=== PATIENT | male | born 1950 | race Two or more races ===

== ENCOUNTER 2016-08-09 13:39 | Inpatient (IN) | payer BC ==
[~2016-08-09] VITALS: Ht 180.3 cm; Wt 135.3 kg
--- NOTE | 2016-08-09 15:20 | RAD ---
Indication: Short of air beginning last night. Cough. Technique: Two-view chest radiograph was obtained. Comparison is from November 10, 2015. Findings: There is mild elevation of the right hemidiaphragm. The lungs are clear. There is no pleural effusion. The heart is not enlarged and there is no heart failure. There are degenerative changes in the spine. Impression: No active pulmonary disease.
[2016-08-09 15:24] LABS: BASO # 0.1 x10^3/uL (0.0-0.2); BASO % 1 % (0-3); EOS % 1 % (0-3); HEMATOCRIT 48.3 % (39.0-53.0); HEMOGLOBIN 15.6 g/dL (13.0-17.5); LYMPH # 1.5 x10^3/uL (1.0-4.8); LYMPH % 11 % (24-48); MEAN CORPUSCULAR HEMOGLOBIN 29 pg (25-35); MEAN CORPUSCULAR HGB CONC 32 g/dL (31-37); MEAN CORPUSCULAR VOLUME 90 fL (79-100); MONO % 11 % (0-9); NEUT % 76 % (31-73); PLATELET COUNT 140 x10^3/uL (140-400); RED BLOOD COUNT 5.35 x10^6/uL (4.30-5.70); RED CELL DISTRIBUTION WIDTH 13.7 % (11.5-14.5)
--- NOTE | 2016-08-09 15:33 | EKG ---
[facility] [address] [place] [address] Test Date: 2016-08-09 Test Time: 15:17:07 Pat Name: CHERYLE AGUILAR Department: Room: Gender: Speeder Hand: : 1950 Requested By: MARY JERNIGAN Order Number: [id number] Reading MD: Shannan Byrne Measurements Intervals [place] Rate: 101 P: 41 [place]: 148 QRS: -31 QRSD: 100 T: 1 QT: 342 QTc: 450 Interpretive Statements SINUS TACHYCARDIA ABNORMAL LEFT AXIS DEVIATION OLD ANTEROSEPTAL [place] T ABNORMALITY IN ANTERIOR LEADS RI6.01 Unconfirmed report No previous ECG available for comparison Electronically Signed On 08-11-2016 10:58:01 CDT by Shannan Byrne
[2016-08-09 15:34] LABS: CALCIUM 9.5 mg/dL (8.5-10.1); CREATININE 1.2 mg/dL (0.7-1.3); POTASSIUM 4.6 mmol/L (3.5-5.1)
[2016-08-09] MEDS ORDERED: IOHEXOL 300 MG/ML 75 ML VIAL IV ONE (15:45)
[2016-08-09] MEDS ORDERED: SPIR50TA2 PO (15:58)
[2016-08-09 16:22] LABS: INR 1.1 (0.8-1.1); PROTHROMBIN TIME PATIENT 13.8 SEC (11.7-14.0)
[2016-08-09] MEDS ORDERED: CONTRAST GIVEN MC PRN (16:30)
--- NOTE | 2016-08-09 16:45 | RAD ---
CTA of the chest without contrast, 08/09/2016: History: Shortness of breath, stopped anticoagulation Multidetector CT imaging was performed following an IV bolus injection of iodinated contrast material. Multiplanar reconstructions were produced including coronal MIP images. No previous studies are available at this time for comparison purposes. There is a filling defect in the lateral aspect of the right main pulmonary artery extending into lobar and segmental branches in the right upper and lower lobes, and to a lesser degree in the right middle lobe. There are also segmental and subsegmental pulmonary artery filling defects in the left upper and lower lobes. There is mild calcific plaquing of the thoracic aorta. The ascending aorta measures 4.6 cm in width. The thoracic arch measures 3.8 cm. The descending thoracic aorta measures approximately 3 cm. Mild scattered coronary artery calcifications are present. Several small scattered linear opacities are compatible with scarring and/or atelectasis. No significant pulmonary consolidation is seen. There is no evidence of pleural fluid. IMPRESSION: 1. Moderate bilateral pulmonary emboli. 2. Calcific plaquing of the aorta with mild dilatation of the ascending aorta. 3. Coronary artery calcifications. PQRS Compliance Statement: One or more of the following individualized dose reduction techniques were utilized for this examination: 1. Automated exposure control 2. Adjustment of the mA and/or kV according to patient size 3. Use of iterative reconstruction technique
--- NOTE | 2016-08-09 16:51 | ED.ADGEN ---
Past Medical History Past Medical History: Other Additional Past Medical Histor: DVT Past Surgical History: Other Additional Past Surgical Histo: IVC filter Alcohol Use: None Drug Use: None Adult General Chief Complaint Chief Complaint: SHORTNESS OF BREATH HPI HPI Patient is a 66 year old man, history of DVT and bilateral lower extremities, who was previously on anticoagulation, but was taken off after complications several years ago, who presents to the emergency department with complaint of dyspnea and exertion that began yesterday. Patient states that he was attempting amulet, was feeling extremely short of breath. States that the shortness of breath did improve when he sat down to rest. Denies any chest pain , states he did express of epigastric pain that began yesterday afternoon. He tried taking antacids without relief. Patient denies any injuries, any weakness numbness or tingling, states that he felt slightly lightheaded, when the shortness of breath occurred, denies any symptoms at rest at this time. Denies any recent travel or surgery, any increased swelling in his life, states that "they will swell and then get better it just comes and goes". He states that he believes that he had a stress test performed several years ago at [facility], but is a limited historian. He states that he does not know the cause for his DVTs, but states that he was evaluated by animal bounty hunter and was told that he did not necessarily need to be anticoagulated anymore "unless I wanted to". He is currently taking "natural pills" along with the by systolic and spironolactone prescribed by his primary care provider Dr. Segura. Review of Systems Review of Systems Constitutional: Denies fever or chills. [] Eyes: Denies change in visual acuity. [] HENT: Denies nasal congestion or sore throat. [] Respiratory: Denies cough, complaining of shortness of breath and epigastric abdominal pain. Cardiovascular: Denies chest pain or edema. [] GI: Denies abdominal pain, nausea, vomiting, bloody stools or diarrhea. [] : Denies dysuria. [] Musculoskeletal: Denies back pain or joint pain. [] Integument: Denies rash. [] Neurologic: Denies headache, focal weakness or sensory changes. [] Endocrine: Denies polyuria or polydipsia. [] Lymphatic: Denies swollen glands. [] Psychiatric: Denies depression or anxiety. [] Current Medications Current Medications Current Medications Medications (Trade) Dose Ordered Sig/Melinda Start Time Stop Time Status Last Admin Dose Admin Info (Do NOT chart on this entry -- for MONITORING) 1 each PRN DAILY PRN 08/09/16 16:30 08/11/16 16:29 Iohexol (Omnipaque 300 Mg/ml) 75 ml 1X ONCE 08/09/16 15:45 08/09/16 16:25 DC Allergies Allergies Allergies Coded Allergies Type Severity Reaction Last Updated Verified No Known Drug Allergies 08/09/16 No Physical Exam Physical Exam Constitutional: Well developed, well nourished, no acute distress, non-toxic appearance. [] HENT: Normocephalic, atraumatic, bilateral external ears normal, oropharynx moist, no oral exudates, nose normal. [] Eyes: PERRLA, EOMI, conjunctiva normal, no discharge. [] Neck: Normal range of motion, no tenderness, supple, no stridor. [] Cardiovascular:Heart rate regular rhythm, no murmur, S1, S2, mildly tachycardic. No rubs or gallops. [] Lungs & Thorax: Diminished breath sounds throughout, no rhonchi, rales or wheezing identified. Good air movement. No chest wall crepitus or point tenderness. [] Abdomen: Bowel sounds normal, soft, no tenderness, no rebound, rigidity, no guarding, no masses, no pulsatile masses. [] Skin: Warm, dry, no erythema, no rash. [] Back: No tenderness, no CVA tenderness. [] Extremities: No tenderness, no cyanosis, no clubbing, ROM intact, patient with chronic skin changes, venous stasis, negative Homans sign. Neurologic: Alert and oriented X 3, normal motor function, normal sensory function, no focal deficits noted. [] Psychologic: Affect normal, judgement normal, mood normal. [] Current Patient Data Vital Signs Vital Signs Date Time Temp Pulse Resp B/P Pulse Ox O2 Delivery O2 Flow Rate FiO2 08/09/16 17:33 100 19 143/80 98 Room Air 08/09/16 14:12 97.5 97.5 Lab Values Laboratory Tests Test 08/09/16 15:10 White Blood Count 13.0x10^3/uL (4.0-11.0) H Red Blood Count 5.35x10^6/uL (4.30-5.70) Hemoglobin 15.6g/dL (13.0-17.5) Hematocrit 48.3% (39.0-53.0) Mean Corpuscular Volume 90fL (79-100) Mean Corpuscular Hemoglobin 29pg (25-35) Mean Corpuscular Hemoglobin Concent 32g/dL (31-37) Red Cell Distribution Width 13.7% (11.5-14.5) Platelet Count 140x10^3/uL (140-400) Neutrophils (%) (Auto) 76% (31-73) H Lymphocytes (%) (Auto) 11% (24-48) L Monocytes (%) (Auto) 11% (0-9) H Eosinophils (%) (Auto) 1% (0-3) Basophils (%) (Auto) 1% (0-3) Neutrophils # (Auto) 9.9x10^3uL (1.8-7.7) H Lymphocytes # (Auto) 1.5x10^3/uL (1.0-4.8) Monocytes # (Auto) 1.4x10^3/uL (0.0-1.1) H Eosinophils # (Auto) 0.1x10^3/uL (0.0-0.7) Basophils # (Auto) 0.1x10^3/uL (0.0-0.2) Prothrombin Time 13.8SEC (11.7-14.0) Prothrombin Time INR 1.1 (0.8-1.1) PTT 35SEC (24-38) Sodium Level 138mmol/L (136-145) Potassium Level 4.6mmol/L (3.5-5.1) Chloride Level 102mmol/L (98-107) Carbon Dioxide Level 29mmol/L (21-32) Anion Gap 7 (6-14) Blood Urea Nitrogen 19mg/dL (8-26) Creatinine 1.2mg/dL (0.7-1.3) Estimated GFR (Cockcroft-Gault) 61.0 Glucose Level 106mg/dL (70-99) H Calcium Level 9.5mg/dL (8.5-10.1) Troponin I Quantitative 0.800ng/mL (0.000-0.055) RH-Rdt-Y-Type Natriuretic Peptide 2639pg/mL (0-124) H Lipase 87U/L (73-393) Laboratory Tests 08/09/16 15:10 Laboratory Tests 08/09/16 15:10 EKG EKG ECG: Sinus tachycardia, heart rate 101 bpm, left axis deviation noted, QTc of 450, OK 148, QRS of 100, no ST elevations or depressions noted, patient with left anterior fascicular block, abnormal ECG, does not meet STEMI criteria. As interpreted by me. [] Radiology/Procedures Radiology/Procedures [] [facility] [id number] [place] [address] IMAGING REPORT Signed PATIENT: CHERYLE AGUILAR ACCOUNT: [id number] : 1950 LOCATION: ER AGE: 66 SEX: M EXAM STATUS: REG ER ORD. PHYSICIAN: MARY JERNIGAN DO REASON: CP/cough PROCEDURE: CHEST PA & LATERAL Indication: Short of air beginning last night. Cough. Technique: Two-view chest radiograph was obtained. Comparison is from November 10, 2015. Findings: There is mild elevation of the right hemidiaphragm. The lungs are clear. There is no pleural effusion. The heart is not enlarged and there is no heart failure. There are degenerative changes in the spine. Impression: No active pulmonary disease. DICTATED and SIGNED BY: JAM OLSON MD DATE: 08/09/16 7146 CC: MARY JERNIGAN DO; IDA SGEURA MD ~ Impressions: [facility] [address] [place] [address] IMAGING REPORT Signed PATIENT: CHERYLE AGUILAR ACCOUNT: [id number] : 1950 LOCATION: ER AGE: 66 SEX: M EXAM STATUS: REG ER ORD. PHYSICIAN: MARY JERNIGAN DO REASON: SOB/hx PE, off anticoagulation PROCEDURE: CTA CHEST CTA of the chest without contrast, 08/09/2016: History: Shortness of breath, stopped anticoagulation Multidetector CT imaging was performed following an IV bolus injection of iodinated contrast material. Multiplanar reconstructions were produced including coronal MIP images. No previous studies are available at this time for comparison purposes. There is a filling defect in the lateral aspect of the right main pulmonary artery extending into lobar and segmental branches in the right upper and lower lobes, and to a lesser degree in the right middle lobe. There are also segmental and subsegmental pulmonary artery filling defects in the left upper and lower lobes. There is mild calcific plaquing of the thoracic aorta. The ascending aorta measures 4.6 cm in width. The thoracic arch measures 3.8 cm. The descending thoracic aorta measures approximately 3 cm. Mild scattered coronary artery calcifications are present. Several small scattered linear opacities are compatible with scarring and/or atelectasis. No significant pulmonary consolidation is seen. There is no evidence of pleural fluid. IMPRESSION: 1. Moderate bilateral pulmonary emboli. 2. Calcific plaquing of the aorta with mild dilatation of the ascending aorta. 3. Coronary artery calcifications. PQRS Compliance Statement: One or more of the following individualized dose reduction techniques were utilized for this examination: 1. Automated exposure control 2. Adjustment of the mA and/or kV according to patient size 3. Use of iterative reconstruction technique DICTATED and SIGNED BY: DEAN URBINA MD DATE: 08/09/16 9652 CC: MARY JERNIGAN DO; IDA SEGURA MD ~ Course & Med Decision Making Course & Med Decision Making Pertinent Labs and Imaging studies reviewed. (See chart for details) Patient is a rather poor historian, states he does have an IVC filter in place, that was placed 3 years ago" was supposed be taking a few months later but then they did an". I am still unclear as to whether this was a provoked DVT 3 years ago, and if he is still supposed to be on anticoagulation based in his report. After discussion, we'll obtain laboratory studies, imaging of the chest for chest x-ray, and CT of the chest to rule out evaluate for PE. Patient's previous DVT study reveals chronic widespread thrombosis. No indication to repeat at this time. Patient noted be mildly hypoxic, oxygen saturation 94% on room air, heart rate in the 90s to low 100s. Denies any shortness of breath or chest tightness at rest. PE study reveals bilateral moderate PE. Findings as above discussed with patient and family at bedside, patient is agreeable for admission to the hospital and initiation on anticoagulation, noted have positive troponin 0.800, as stated is asymptomatic at rest, and I believe the elevated troponin is due to heart strain from the patient's PE. Findings as above discussed with Dr. Capone of pulmonary critical care, he is in agreement with the plan for heparin, recommends admission to the cardiac telemetry floor, and with the assessment of the patient's elevated troponin due to his known PE. We'll follow the patient upon admission to the hospital. Findings as above discussed with Dr. Del Valle of internal medicine, patient accepted to his service as a full admission to the cardiac telemetry floor, consultation with pulmonary critical care and cardiology, heparin. Bridge orders entered as stated. Dragethan Disclaimer Dragon Disclaimer This electronic medical record was generated, in whole or in part, using a voice recognition dictation system. Departure Impression: Primary Impression: Pulmonary embolism Disposition: ADMITTED INPATIENT Admitting Physician: Nicholas Del Valle Condition: IMPROVED MARY JERNIGAN DO Aug 09, 2016 16:51
[2016-08-09] MEDS ORDERED: HEPARIN for IV BOLUS 10,000 UNIT/10 ML VIAL. IV PRN (17:45)
[2016-08-09] MEDS ORDERED: HEPARIN for IV BOLUS 10,000 UNIT/10 ML VIAL. IV ONE (17:45)
[2016-08-09] MEDS: HEPARIN 25,000UTS/500ML PREMIX 500 ML IV PRN (17:52)
[2016-08-09] MEDS ORDERED: ACETAMINOPHEN 325 MG TABLET. PO PRN (18:00)
[2016-08-09] MEDS ORDERED: ONDANSETRON PF 4 MG/2 ML VIAL. IV PRN (18:00)
[2016-08-09 19:52] VITALS: BP 132/83
[2016-08-09 23:22] VITALS: BP 124/73
[2016-08-10 03:06] VITALS: BP 131/72
[2016-08-10 03:35] LABS: BASO % 0 % (0-3); EOS % 1 % (0-3); HEMATOCRIT 43.9 % (39.0-53.0); HEMOGLOBIN 14.5 g/dL (13.0-17.5); LYMPH # 1.8 x10^3/uL (1.0-4.8); LYMPH % 17 % (24-48); MEAN CORPUSCULAR HEMOGLOBIN 29 pg (25-35); MEAN CORPUSCULAR HGB CONC 33 g/dL (31-37); MEAN CORPUSCULAR VOLUME 89 fL (79-100); MONO % 13 % (0-9); NEUT % 69 % (31-73); PLATELET COUNT 139 x10^3/uL (140-400); RED BLOOD COUNT 4.91 x10^6/uL (4.30-5.70); RED CELL DISTRIBUTION WIDTH 13.4 % (11.5-14.5); WHITE BLOOD COUNT 10.9 x10^3/uL (4.0-11.0)
[2016-08-10 03:56] LABS: CALCIUM 8.8 mg/dL (8.5-10.1); CREATININE 1.2 mg/dL (0.7-1.3); POTASSIUM 4.5 mmol/L (3.5-5.1)
--- NOTE | 2016-08-10 05:08 | ACF ---
Admission Forms Criteria PULMONARY EMBOLISM Clinical Indications for Admission to Inpatient Care (Place 'X' for any and all applicable criteria): Admission is indicated by ANY ONE of the following 1,2,3,4,5 [ ]I. Onset of hypoxia [ ]II. Hemodynamic instability 5 [ ]III. Massive pulmonary embolism (eg, acute embolism causing sustained hypotension, pulselessness, or bradycardia)5 [ ]IV. Need for IV narcotics (eg, to treat dyspnea) [ ]V. Current use of home oxygen therapy [ ]. Active bleeding [ ]VII. Recent surgery [ ]VIII. Active peptic ulcer disease [ ]IX. Documented extensive thrombosis (eg, clot in vena cava or above iliofemoral bifurcation) [ ]X. Embolism while on anticoagulation [ ]XI. 6 [ ]XII. Appropriate monitoring and therapy cannot be provided in home or outpatient setting. [ ]XIII. Systemic or catheter-directed thrombolysis 5,7 [ ]XIV. Catheter embolectomy and fragmentation 6 [ ]XV. Vena cava filter placement5 [ ]XVI. Severely diminished cardiopulmonary reserve (eg, cor pulmonale, pulmonary hypertension) [ ]XVII. Severe renal failure (eg, GFR less than 30 mL/min/1.73m2 (0.5 mL/sec/ 1.73m2)) [ ]XVIII.Right ventricular dysfunction (eg, by echocardiogram) 6,11 [X]XIX. Positive cardiac biomarker (eg, troponin T or I > 0.1 ng/mL (mcg/L), highly sensitive troponin I assay greater than 0.014 ng/mL (mcg/L), BNP or NT proBNP > assay threshold)5,8,9 [ ]XX. Known clotting abn or def (eg, liver disease, antithrombin III, protein C, or protein S abnormality) [ ]XXI. History of heparin-induced thrombocytopenia [ ]XXII. Inpatient admission required rather than observation care (Also use Pulmonary Embolism: Observation Care guideline as appropriate) because of ANY ONE of the following: [ ] a) Significant autoimmune (thrombocytopenia) or coagulopathic reaction occurs in response to anticoagulation [ ] b) Respiratory symptoms (eg, tachypnea, dyspnea) that are severe or persistent [ ] c) Other condition, treatment, or monitoring requiring inpatient admission Extended stay beyond goal length of stay may be needed for 3,28 [ ]a) Hemorrhage or recent surgery [ ]b) Recurrent thromboembolism [ ]c) Persistent hypoxemia [ ]d) Heparin-induced thrombocytopenia The [facility] content created by [facility] has been revised. The portions of the content which have been revised are identified through the use of italic text or in bold, and [facility] has neither reviewed nor approved the modified material. All other unmodified content is copyright [facility]. Please see references footnoted in the original [facility] edition 2016 Admission Criteria Met?: Yes RAGHAV DALEY Aug 10, 2016 05:08
[2016-08-10 07:00] VITALS: BP 126/87
[2016-08-10] MEDS: ANTI-COAG MONITOR BY PHARMACY. MC PRN (08:14)
[2016-08-10] MEDS ORDERED: INFLUENZA VAX SCREEN BY RX. MC PRN (08:30)
[2016-08-10] MEDS ORDERED: FLU VACC QUAD 2016-17 (36MOS+)/PF 0.5 ML SYRINGE. VAX IM ONE (08:45)
--- NOTE | 2016-08-10 10:12 | PDOC ---
OBJECTIVE Vital Signs Vital Signs Date Time Temp Pulse Resp B/P Pulse Ox O2 Delivery O2 Flow Rate FiO2 08/10/16 07:00 98.6 92 19 126/87 93 Room Air 98.6 08/10/16 03:06 98.0 102 22 131/72 91 Room Air 98.0 08/09/16 23:22 97.8 100 18 124/73 93 Room Air 97.8 08/09/16 23:05 Room Air 08/09/16 19:52 98.6 104 20 132/83 96 Room Air 98.6 08/09/16 18:33 102 20 154/92 98 Room Air 08/09/16 18:03 94 22 150/72 98 Room Air 08/09/16 17:33 100 19 143/80 98 Room Air 08/09/16 17:03 96 22 134/61 96 Room Air 08/09/16 16:33 98 22 128/74 98 Room Air 08/09/16 14:12 97.5 104 22 128/79 96 Room Air 97.5 I & O Intake and Output 08/10/16 07:00 Intake Total 300 ml Output Total 450 ml Balance -150 ml Intake Oral 300 ml Output Urine Total 450 ml ASSESSMENT/PLAN Assessment/Plan [id number] H&P dictated Problems: COMMENT Lab Laboratory Tests Test 08/09/16 15:10 08/09/16 20:48 08/10/16 00:55 08/10/16 03:04 White Blood Count 13.0x10^3/uL (4.0-11.0) 10.9x10^3/uL (4.0-11.0) Red Blood Count 5.35x10^6/uL (4.30-5.70) 4.91x10^6/uL (4.30-5.70) Hemoglobin 15.6g/dL (13.0-17.5) 14.5g/dL (13.0-17.5) Hematocrit 48.3% (39.0-53.0) 43.9% (39.0-53.0) Mean Corpuscular Volume 90fL (79-100) 89fL (79-100) Mean Corpuscular Hemoglobin 29pg (25-35) 29pg (25-35) Mean Corpuscular Hemoglobin Concent 32g/dL (31-37) 33g/dL (31-37) Red Cell Distribution Width 13.7% (11.5-14.5) 13.4% (11.5-14.5) Platelet Count 140x10^3/uL (140-400) 139x10^3/uL (140-400) Neutrophils (%) (Auto) 76% (31-73) 69% (31-73) Lymphocytes (%) (Auto) 11% (24-48) 17% (24-48) Monocytes (%) (Auto) 11% (0-9) 13% (0-9) Eosinophils (%) (Auto) 1% (0-3) 1% (0-3) Basophils (%) (Auto) 1% (0-3) 0% (0-3) Neutrophils # (Auto) 9.9x10^3uL (1.8-7.7) 7.5x10^3uL (1.8-7.7) Lymphocytes # (Auto) 1.5x10^3/uL (1.0-4.8) 1.8x10^3/uL (1.0-4.8) Monocytes # (Auto) 1.4x10^3/uL (0.0-1.1) 1.4x10^3/uL (0.0-1.1) Eosinophils # (Auto) 0.1x10^3/uL (0.0-0.7) 0.1x10^3/uL (0.0-0.7) Basophils # (Auto) 0.1x10^3/uL (0.0-0.2) 0.0x10^3/uL (0.0-0.2) Prothrombin Time 13.8SEC (11.7-14.0) Prothromb Time International Ratio 1.1 (0.8-1.1) Activated Partial Thromboplast Time 35SEC (24-38) Sodium Level 138mmol/L (136-145) 139mmol/L (136-145) Potassium Level 4.6mmol/L (3.5-5.1) 4.5mmol/L (3.5-5.1) Chloride Level 102mmol/L (98-107) 103mmol/L (98-107) Carbon Dioxide Level 29mmol/L (21-32) 25mmol/L (21-32) Anion Gap 7 (6-14) 11 (6-14) Blood Urea Nitrogen 19mg/dL (8-26) 22mg/dL (8-26) Creatinine 1.2mg/dL (0.7-1.3) 1.2mg/dL (0.7-1.3) Estimated GFR (Cockcroft-Gault) 61.0 61.0 Glucose Level 106mg/dL (70-99) 108mg/dL (70-99) Calcium Level 9.5mg/dL (8.5-10.1) 8.8mg/dL (8.5-10.1) Troponin I Quantitative 0.800ng/mL (0.000-0.055) 0.676ng/mL (0.000-0.055) 0.499ng/mL (0.000-0.055) AY-Deg-S-Type Natriuretic Peptide 2639pg/mL (0-124) Lipase 87U/L (73-393) Heparin Anti-Xa Act, Unfractionated 0.52IU/mL (0.30-0.70) Test 08/10/16 06:35 Heparin Anti-Xa Act, Unfractionated 0.48IU/mL (0.30-0.70) NOEMI BEAR MD Aug 10, 2016 10:12
--- NOTE | 2016-08-10 11:02 | PDOC2 ---
LONI ONEILL BENEFITS MANAGER 08/10/16 1102: CARDIAC CONSULT DATE OF CONSULT Date of Consult DATE: 08/10/16 TIME: 11:01 REASON FOR CONSULT Reason for Consult: elevated troponin REFERRING PHYSICIAN Referring Physician: Dr. Robyn Velasco SOURCE Source: Chart review, Patient HISTORY OF PRESENT ILLNESS HISTORY OF PRESENT ILLNESS 66 year old male with recent dyspnea. Presented to ER and CT scan demonstrates bilateral pulmonary emboli with heparin gtt initiated. History of right LE superficial clot about 3 years ago and reports he was told by physician to go to bed and spend 2 weeks there; subsequently developed left lower extremity DVT requiring placement on IVC filter and was on OAC until about 18 months ago. Has treated in the interim with "natural pills" but without knowledge of ingredients. Denies chest pain, though has had dizziness. Nt-proBNP of 2600 with troponin peaking @ 0.8 and trending downward. EKG with ST. Reason for Visit: elevate troponin PAST MEDICAL HISTORY Cardiovascular: HTN Pulmonary: Other (ADILENE; stopped CPAP 10 years ago after episode of epistaxis; LLE DVT) PAST SURGICAL HISTORY Past Surgical History: Other (right knee meniscus) FAMILY HISTORY Family History: Heart Disease (mother) SOCIAL HISTORY Smoke: Quit (40 years ago) ALCOHOL: none Drugs: None CURRENT MEDICATIONS CURRENT MEDICATIONS Current Medications Medications (Trade) Dose Ordered Sig/Melinda Route PRN Reason Start Time Stop Time Status Last Admin Dose Admin Heparin Sodium (Porcine) 92491 unit 10,000 unit 1X ONCE IV 08/09/16 17:45 08/09/16 17:46 DC 08/09/16 17:50 Heparin Sodium/ Dextrose 500 ml @ 0 mls/hr CONT PRN IV SEE I/O RECORD 08/09/16 17:45 08/09/16 17:52 Info (Anti-Coagulation Monitoring By Pharmacy) 1 each PRN DAILY PRN MC SEE COMMENTS 08/10/16 08:15 08/10/16 08:14 ALLERGIES ALLERGIES: Coded Allergies: No Known Drug Allergies (Unverified , 08/09/16) ROS Review of System 14 point review with pertinent positives in HPI PHYSICAL EXAM General: Alert, Oriented X3, Cooperative, No acute distress HEENT: Atraumatic, PERRLA Lungs: Clear to auscultation, Normal air movement Heart: Regular rate, Normal S1, Normal S2, No murmurs Abdomen: Normal bowel sounds, Soft, No tenderness Extremities: Normal pulses Skin: No rashes Neuro: Normal speech Psych/Mental Status: Mental status NL, Mood NL MUSCULOSKELETAL: No swelling VITALS VITALS Vital Signs Date Time Temp Pulse Resp B/P Pulse Ox O2 Delivery O2 Flow Rate FiO2 08/10/16 07:00 98.6 92 19 126/87 93 Room Air 98.6 LABS Lab: Laboratory Tests Test 08/09/16 15:10 08/09/16 20:48 08/10/16 00:55 08/10/16 03:04 White Blood Count 13.0x10^3/uL (4.0-11.0) 10.9x10^3/uL (4.0-11.0) Red Blood Count 5.35x10^6/uL (4.30-5.70) 4.91x10^6/uL (4.30-5.70) Hemoglobin 15.6g/dL (13.0-17.5) 14.5g/dL (13.0-17.5) Hematocrit 48.3% (39.0-53.0) 43.9% (39.0-53.0) Mean Corpuscular Volume 90fL (79-100) 89fL (79-100) Mean Corpuscular Hemoglobin 29pg (25-35) 29pg (25-35) Mean Corpuscular Hemoglobin Concent 32g/dL (31-37) 33g/dL (31-37) Red Cell Distribution Width 13.7% (11.5-14.5) 13.4% (11.5-14.5) Platelet Count 140x10^3/uL (140-400) 139x10^3/uL (140-400) Neutrophils (%) (Auto) 76% (31-73) 69% (31-73) Lymphocytes (%) (Auto) 11% (24-48) 17% (24-48) Monocytes (%) (Auto) 11% (0-9) 13% (0-9) Eosinophils (%) (Auto) 1% (0-3) 1% (0-3) Basophils (%) (Auto) 1% (0-3) 0% (0-3) Neutrophils # (Auto) 9.9x10^3uL (1.8-7.7) 7.5x10^3uL (1.8-7.7) Lymphocytes # (Auto) 1.5x10^3/uL (1.0-4.8) 1.8x10^3/uL (1.0-4.8) Monocytes # (Auto) 1.4x10^3/uL (0.0-1.1) 1.4x10^3/uL (0.0-1.1) Eosinophils # (Auto) 0.1x10^3/uL (0.0-0.7) 0.1x10^3/uL (0.0-0.7) Basophils # (Auto) 0.1x10^3/uL (0.0-0.2) 0.0x10^3/uL (0.0-0.2) Prothrombin Time 13.8SEC (11.7-14.0) Prothromb Time International Ratio 1.1 (0.8-1.1) Activated Partial Thromboplast Time 35SEC (24-38) Sodium Level 138mmol/L (136-145) 139mmol/L (136-145) Potassium Level 4.6mmol/L (3.5-5.1) 4.5mmol/L (3.5-5.1) Chloride Level 102mmol/L (98-107) 103mmol/L (98-107) Carbon Dioxide Level 29mmol/L (21-32) 25mmol/L (21-32) Anion Gap 7 (6-14) 11 (6-14) Blood Urea Nitrogen 19mg/dL (8-26) 22mg/dL (8-26) Creatinine 1.2mg/dL (0.7-1.3) 1.2mg/dL (0.7-1.3) Estimated GFR (Cockcroft-Gault) 61.0 61.0 Glucose Level 106mg/dL (70-99) 108mg/dL (70-99) Calcium Level 9.5mg/dL (8.5-10.1) 8.8mg/dL (8.5-10.1) Troponin I Quantitative 0.800ng/mL (0.000-0.055) 0.676ng/mL (0.000-0.055) 0.499ng/mL (0.000-0.055) KJ-Rpq-Q-Type Natriuretic Peptide 2639pg/mL (0-124) Lipase 87U/L (73-393) Heparin Anti-Xa Act, Unfractionated 0.52IU/mL (0.30-0.70) Test 08/10/16 06:35 Heparin Anti-Xa Act, Unfractionated 0.48IU/mL (0.30-0.70) IMAGES IMAGES CTA chest: Multidetector CT imaging was performed following an IV bolus injection of iodinated contrast material. Multiplanar reconstructions were produced including coronal MIP images. No previous studies are available at this time for comparison purposes. There is a filling defect in the lateral aspect of the right main pulmonary artery extending into lobar and segmental branches in the right upper and lower lobes, and to a lesser degree in the right middle lobe. There are also segmental and subsegmental pulmonary artery filling defects in the left upper and lower lobes. There is mild calcific plaquing of the thoracic aorta. The ascending aorta measures 4.6 cm in width. The thoracic arch measures 3.8 cm. The descending thoracic aorta measures approximately 3 cm. Mild scattered coronary artery calcifications are present. Several small scattered linear opacities are compatible with scarring and/or atelectasis. No significant pulmonary consolidation is seen. There is no evidence of pleural fluid. IMPRESSION: 1. Moderate bilateral pulmonary emboli. 2. Calcific plaquing of the aorta with mild dilatation of the ascending aorta. 3. Coronary artery calcifications. EKG EKG no acute changes ASSESSMENT/PLAN ASSESSMENT/PLAN 1. abnormal troponin in the setting of bilateral pulmonary emboli peaked at 0.8 no acute changes in EKG echo to evaluate LVEF and assess for WMA MPI when agreeable with PULM or may need to be done as outpatient 2. bilateral pulmonary embolus on heparin gtt hx of IVC filter 3. elevated BNP with suspected CHF history based on home meds ? related to bilateral PE echo to evaluate LVEF Problems: NABIL WILLIAM MD 08/10/16 1900: CARDIAC CONSULT ALLERGIES ALLERGIES: Coded Allergies: No Known Drug Allergies (Unverified , 08/09/16) ASSESSMENT/PLAN ASSESSMENT/PLAN Patient seen and examined. Agree with above nurse practitioner note. 66-year-old male presenting with dyspnea and found to have bilateral pulmonary emboli. On examination he has distant heart sounds. No significant rales or rhonchi. Echocardiogram demonstrates RV dilatation with pulmonary hypertension. Supportive care from a cardiac standpoint. Aggressive anticoagulation per pulmonary team. We will follow along closely. Consider repeat echocardiogram in 2-3 months after anticoagulation. Problems: LONI ONEILL APRN Aug 10, 2016 11:02 NABIL WILLIAM MD Aug 10, 2016 19:00
[2016-08-10 11:39] VITALS: BP 129/85
[2016-08-10] MEDS: ASPIRIN ENTERIC COATED 81 MG TABLET.DR. PO SCH (12:05)
[2016-08-10] MEDS: PANTOPRAZOLE 40 MG TABLET. PO SCH (12:05)
[2016-08-10] MEDS: METOPROLOL TART IMMED RELEASE 50 MG TABLET PO SCH ×2 (12:12→21:12)
--- NOTE | 2016-08-10 13:39 | CARD ---
APPROVED REPORT EXAM: Two-dimensional and M-mode echocardiogram with Doppler and color Doppler. Other Information Quality : Fair INDICATION Bilateral Pulmonary Emolism, Elevated Troponin RISK FACTORS Obesity 2D DIMENSIONS RVDd3.9 (2.9-3.5cm)Left Atrium(2D)4.0 (1.6-4.0cm) IVSd1.7 (0.7-1.1cm)Aortic Root(2D)3.6 (2.0-3.7cm) LVDd4.0 (3.9-5.9cm)LVOT Diameter2.3 (1.8-2.4cm) PWd2.1 (0.7-1.1cm)LVDs3.0 (2.5-4.0cm) FS (%) 28.0 %SV36.4 ml LVEF(%)55.0 (>50%) Aortic Valve AoV Peak Paulo.134.6cm/sAoV VTI21.5cm AO Peak GR.7.2mmHgLVOT Peak Paulo.104.5cm/s AO Mean GR.4mmHgAVA (VMAX)3.32cm2 MARIIA (VTI)3.20cm2 Mitral Valve MV E Slycfjyo58.1cm/sMV DECEL [id number] MV A Xghnohae355.1cm/sE/A Ratio0.5 Tricuspid Valve TR P. Alzrbguw542nl/sRAP XJUISAKF7jxAu TR Peak Gr.85hvWjWRQM11ndWu LEFT VENTRICLE The left ventricle is normal size. There is mild to moderate concentric left ventricular hypertrophy. The left ventricular systolic function is normal and the ejection fraction is within normal range. T he Ejection Fraction is 55-60%. There is a flattened septum consistent with right ventricular pressur e overload. Transmitral Doppler flow pattern is Grade I-abnormal relaxation pattern. RIGHT VENTRICLE The right ventricle is moderately dilated. RV Systolic function is mild to moderately reduced. ATRIA The left atrium is mildly dilated. The right atrium is moderately dilated. The interatrial septum is intact with no evidence for an atrial septal defect or patent foramen ovale as noted on 2-D or Dopple r imaging. AORTIC VALVE The aortic valve is calcified but opens well. Doppler and Color Flow revealed mild aortic regurgitati on. There is no significant aortic valvular stenosis. MITRAL VALVE The mitral valve is normal in structure and function. There is no evidence of mitral valve prolapse. There is no mitral valve stenosis. Doppler and Color Flow revealed no mitral valve regurgitation note d. TRICUSPID VALVE The tricuspid valve is normal in structure and function. Doppler and Color Flow revealed mild tricusp id regurgitation. There is moderate to severe pulmonary hypertension. The PA pressure was estimated a t 60 mmHg. There is no tricuspid valve stenosis. PULMONIC VALVE Doppler and Color Flow revealed trace pulmonic valvular regurgitation. There is no pulmonic valvular stenosis. GREAT VESSELS The aortic root is mildly The ascending aorta is moderately dilated at 4.7 cm. The IVC is normal in s ize and collapses >50% with inspiration. PERICARDIAL EFFUSION There is no evidence of significant pericardial effusion. Critical Notification Critical Value: No <Conclusion> The left ventricular systolic function is normal and the ejection fraction is within normal range. Th e Ejection Fraction is 55-60%. There is a flattened septum consistent with right ventricular pressure overload. The right ventricle is moderately dilated. RV Systolic function is mild to moderately reduced. The right atrium is moderately dilated. Doppler and Color Flow revealed mild tricuspid regurgitation. There is moderate to severe pulmonary h ypertension. The PA pressure was estimated at 60 mmHg. The ascending aorta is moderately dilated at 4.7 cm.
--- NOTE | 2016-08-10 14:01 | PREOP HP ---
DATE OF SERVICE: HISTORY OF PRESENT ILLNESS: The patient is a 66-year-old gentleman who presented to the Emergency Room complaining of increasing shortness of breath. He does have a previous history of DVT in bilateral lower extremities and has been on anticoagulation for a long time. He was initially on warfarin and then on Xarelto. He had seen Hematology/Oncology about a year ago as he was having problem with rectal bleeding and abdominal discomfort from the Xarelto. At that time, his DVTs had cleared up bilaterally and he was taken off Xarelto. He was using some alternative medicine, blood thinner, not sure of the name of it, and was doing okay. He did have an inferior vena cava placed about a year ago and was supposed to be removed in 3 months but never was removed. Over the last week or so, he has been gradually more short of breath and getting really short-winded and dizzy with minimal activities. His symptoms would improve after he sits down to rest. The frequency of the symptoms has been getting worse and was interfering with his activities of daily living due to the shortness of breath. He denies nausea or vomiting, and denies numbness in his left arm associated with those symptoms. He does report feeling dizzy and lightheaded when he is short of breath, and his symptoms would resolve with rest. He denies recent travel or surgery, and denies increase in the swelling of lower extremities. He does have chronic edema in the lower extremity that he uses wraps for, probably lymphedema type, and usually his edema is better when he has used the wraps. PAST MEDICAL HISTORY: Significant for hypertension and previous DVTs as mentioned above. He had a colonoscopy about a year and half ago and had a polyp removed. He was advised to come back in 3 years at that time. REVIEW OF SYSTEMS: CONSTITUTIONAL: Denies fever or chills. EYES: Denies visual changes. HEENT: Denies nasal congestion or sore throat. RESPIRATORY: He does have shortness of breath with activities as mentioned above and discomfort in the epigastric area. CARDIOVASCULAR: Denies chest pain, but he does have chronic edema which usually improves with wrapping and a compression stocking. GASTROINTESTINAL: He denies nausea, vomiting, or diarrhea. Denies recent rectal bleed since he has stopped Xarelto. GENITOURINARY: Denies dysuria. MUSCULOSKELETAL: Denies back pain, does have mild arthritis. DERMATOLOGY: Denies rash. NEUROLOGY: Denies headache or focal weakness. ALLERGIES: He has no known drug allergies. PHYSICAL EXAMINATION: GENERAL: He is a well-developed, well-nourished. He is slightly overweight, nontoxic. HEENT: Normocephalic, atraumatic. EYES: Conjunctivae are normal. No discharge. NECK: Supple, no stridor. CARDIOVASCULAR: Regular rate and rhythm. Mild tachycardia. No rubs or gallops. LUNGS: Diminished breath sounds in both bases. He does have good air movement. ABDOMEN: Soft, nontender, no organomegaly, no masses, no bruits, no ascites. EXTREMITIES: He does have chronic skin changes from chronic edema. He has negative Hall's sign and he does have signs of venous stasis. His edema is about +1 at the present time. NEUROLOGIC: He moves all his extremities, and there is no focal deficit. IMPRESSION: 1. Bilateral pulmonary emboli. 2. Previous history of deep venous thromboses with inferior vena cava filter in place that was supposed to be removed. 3. Obesity and possible sleep apnea. 4. Hypertension. 5. Elevated troponin, rule out shortness of breath-induced angina. The patient does have risk factors for coronary artery disease. We will check his lipids. Cardiology and Pulmonary have been consulted to follow on the patient during this admission. NOEMI BEAR MD DR: HAILY/ainsley JOB#: [id number] / [id number]
[2016-08-10 14:38] VITALS: BP 126/92
--- NOTE | 2016-08-10 16:59 | PDOC ---
PULMONARY PROGRESS NOTES Vitals Vital Signs Date Time Temp Pulse Resp B/P Pulse Ox O2 Delivery O2 Flow Rate FiO2 08/10/16 14:38 98.0 89 20 126/92 97 Room Air 98.0 Labs Laboratory Tests Test 08/09/16 15:10 08/09/16 20:48 08/10/16 00:55 08/10/16 03:04 White Blood Count 13.0x10^3/uL (4.0-11.0) 10.9x10^3/uL (4.0-11.0) Red Blood Count 5.35x10^6/uL (4.30-5.70) 4.91x10^6/uL (4.30-5.70) Hemoglobin 15.6g/dL (13.0-17.5) 14.5g/dL (13.0-17.5) Hematocrit 48.3% (39.0-53.0) 43.9% (39.0-53.0) Mean Corpuscular Volume 90fL (79-100) 89fL (79-100) Mean Corpuscular Hemoglobin 29pg (25-35) 29pg (25-35) Mean Corpuscular Hemoglobin Concent 32g/dL (31-37) 33g/dL (31-37) Red Cell Distribution Width 13.7% (11.5-14.5) 13.4% (11.5-14.5) Platelet Count 140x10^3/uL (140-400) 139x10^3/uL (140-400) Neutrophils (%) (Auto) 76% (31-73) 69% (31-73) Lymphocytes (%) (Auto) 11% (24-48) 17% (24-48) Monocytes (%) (Auto) 11% (0-9) 13% (0-9) Eosinophils (%) (Auto) 1% (0-3) 1% (0-3) Basophils (%) (Auto) 1% (0-3) 0% (0-3) Neutrophils # (Auto) 9.9x10^3uL (1.8-7.7) 7.5x10^3uL (1.8-7.7) Lymphocytes # (Auto) 1.5x10^3/uL (1.0-4.8) 1.8x10^3/uL (1.0-4.8) Monocytes # (Auto) 1.4x10^3/uL (0.0-1.1) 1.4x10^3/uL (0.0-1.1) Eosinophils # (Auto) 0.1x10^3/uL (0.0-0.7) 0.1x10^3/uL (0.0-0.7) Basophils # (Auto) 0.1x10^3/uL (0.0-0.2) 0.0x10^3/uL (0.0-0.2) Prothrombin Time 13.8SEC (11.7-14.0) Prothromb Time International Ratio 1.1 (0.8-1.1) Activated Partial Thromboplast Time 35SEC (24-38) Sodium Level 138mmol/L (136-145) 139mmol/L (136-145) Potassium Level 4.6mmol/L (3.5-5.1) 4.5mmol/L (3.5-5.1) Chloride Level 102mmol/L (98-107) 103mmol/L (98-107) Carbon Dioxide Level 29mmol/L (21-32) 25mmol/L (21-32) Anion Gap 7 (6-14) 11 (6-14) Blood Urea Nitrogen 19mg/dL (8-26) 22mg/dL (8-26) Creatinine 1.2mg/dL (0.7-1.3) 1.2mg/dL (0.7-1.3) Estimated GFR (Cockcroft-Gault) 61.0 61.0 Glucose Level 106mg/dL (70-99) 108mg/dL (70-99) Calcium Level 9.5mg/dL (8.5-10.1) 8.8mg/dL (8.5-10.1) Troponin I Quantitative 0.800ng/mL (0.000-0.055) 0.676ng/mL (0.000-0.055) 0.499ng/mL (0.000-0.055) NH-Eyj-Q-Type Natriuretic Peptide 2639pg/mL (0-124) Lipase 87U/L (73-393) Heparin Anti-Xa Act, Unfractionated 0.52IU/mL (0.30-0.70) Test 08/10/16 06:35 Heparin Anti-Xa Act, Unfractionated 0.48IU/mL (0.30-0.70) Laboratory Tests Test 08/09/16 20:48 08/10/16 00:55 08/10/16 03:04 08/10/16 06:35 Troponin I Quantitative 0.676ng/mL (0.000-0.055) 0.499ng/mL (0.000-0.055) Heparin Anti-Xa Act, Unfractionated 0.52IU/mL (0.30-0.70) 0.48IU/mL (0.30-0.70) White Blood Count 10.9x10^3/uL (4.0-11.0) Red Blood Count 4.91x10^6/uL (4.30-5.70) Hemoglobin 14.5g/dL (13.0-17.5) Hematocrit 43.9% (39.0-53.0) Mean Corpuscular Volume 89fL (79-100) Mean Corpuscular Hemoglobin 29pg (25-35) Mean Corpuscular Hemoglobin Concent 33g/dL (31-37) Red Cell Distribution Width 13.4% (11.5-14.5) Platelet Count 139x10^3/uL (140-400) Neutrophils (%) (Auto) 69% (31-73) Lymphocytes (%) (Auto) 17% (24-48) Monocytes (%) (Auto) 13% (0-9) Eosinophils (%) (Auto) 1% (0-3) Basophils (%) (Auto) 0% (0-3) Neutrophils # (Auto) 7.5x10^3uL (1.8-7.7) Lymphocytes # (Auto) 1.8x10^3/uL (1.0-4.8) Monocytes # (Auto) 1.4x10^3/uL (0.0-1.1) Eosinophils # (Auto) 0.1x10^3/uL (0.0-0.7) Basophils # (Auto) 0.0x10^3/uL (0.0-0.2) Sodium Level 139mmol/L (136-145) Potassium Level 4.5mmol/L (3.5-5.1) Chloride Level 103mmol/L (98-107) Carbon Dioxide Level 25mmol/L (21-32) Anion Gap 11 (6-14) Blood Urea Nitrogen 22mg/dL (8-26) Creatinine 1.2mg/dL (0.7-1.3) Estimated GFR (Cockcroft-Gault) 61.0 Glucose Level 108mg/dL (70-99) Calcium Level 8.8mg/dL (8.5-10.1) Medications Active Scripts Medications Dose Route/Sig Days Date Category Spironolactone 50 Mg Tablet 1 Tab PO BID 08/09/16 Reported Impression . Acute PE in pt with a h/o DVT S/P IVC filter agree with current RX no need for TPA home on Pradaxa in 2-3 days RUSESL MONSIVAIS MD Aug 10, 2016 16:59
[2016-08-10 18:19] VITALS: BP 136/93
[2016-08-10] MEDS: HEPARIN 25,000UTS/500ML PREMIX 500 ML IV PRN (19:27)
--- NOTE | 2016-08-10 21:18 | RAD ---
PROCEDURE Bilateral lower extremity venous Doppler. HISTORY Pulmonary embolism. History of deep venous thrombosis. COMPARISON Left lower extremity venous Doppler March 11, 2016. FINDINGS The veins of both lower extremities were interrogated under grayscale, color Doppler, and spectral Doppler modes. Examination is technically difficult secondary to patient large body habitus. Occlusive, echogenic appearing thrombosis is seen involving the right popliteal vein extending into the posterior tibial vein. Right peroneal veins are not well seen. Occlusive, echogenic thrombosis is seen involving the left femoral vein and left profunda femoral vein extending into the left popliteal vein. Left peroneal veins are not well seen. There is likely partial thrombosis involving the posterior tibial vein. IMPRESSION Both lower extremities demonstrate presence of occlusive deep venous thrombosis. Thrombosis may be chronic, although it be difficult to exclude acute component. Electronically signed by: Ravindra De La Torre MD (Aug 10, 2016 21:16:56)
[2016-08-10 23:00] VITALS: BP 115/65
--- NOTE | 2016-08-11 01:28 | CONS ---
DATE OF CONSULTATION: 08/10/2016 ATTENDING PHYSICIAN: Dr. Ken Corley. REASON FOR CONSULTATION: The patient is seen in pulmonary consultation at the request of Dr. Corley for acute pulmonary embolism. HISTORY OF PRESENT ILLNESS: The patient is a 66-year-old male, with a history of DVT, status post IVC filter placement in the past. He has been on Xarelto. Xarelto was discontinued as a consequence of GI bleed. He has had previous colonoscopy which revealed some colon polyps. Apparently, he is due to repeat his colonoscopy in approximately a year to two from now. He presented with increasing shortness of breath over the last 2 to 3 days, unable to walk very far without getting short of breath. No pleuritic type of pain. No syncope or near syncopal episode. Denied any hemoptysis. He denies any recent travel. He did have some lower extremity edema. He has had some chronic DVTs in the past and chronic edema of the lower extremities. PAST MEDICAL HISTORY: 1. Unprovoked DVT, status post IVC filter placement. The patient has been on Xarelto in the past. He was seen by automatic operator at [facility]. 2. No prior history of pulmonary embolism. 3. Hypertension. 4. Colon polyps, status post colonoscopy. PAST SURGICAL HISTORY: Status post IVC filter placement. ALLERGIES: No known drug allergies. REVIEW OF SYSTEMS: As indicated above; otherwise, a 10-point system was reviewed and negative. HOME MEDICATIONS: List was reviewed. He was on spironolactone. FAMILY HISTORY: No family history of thrombophilia. SOCIAL HISTORY: He quit tobacco ____ years ago. Currently retired. PHYSICAL EXAMINATION: VITAL SIGNS: The patient was in no respiratory distress. On room air, saturation was 91% to 93%. He has not been hypotensive. HEENT: Eyes: The sclerae were nonicteric. NECK: Jugular venous distention was not elevated. No lymphadenopathy. CHEST: Full expansion. LUNGS: Adequate airway flow, no wheezes. CARDIOVASCULAR: Regular rate and rhythm, with S1, S2. No S3. ABDOMEN: Soft, obese. EXTREMITIES: No clubbing, cyanosis. Some erythema, some edema. Skin changes compatible with venous insufficiency. NEUROLOGIC: The patient was awake, alert, following commands. A detailed neuro exam was not performed. LABORATORY DATA: Reviewed. Electrolytes were noted. White count initially elevated. Troponin level was elevated. IMPRESSION: 1. Acute bilateral pulmonary embolism. 2. History of deep venous thrombosis, status post IVC filter placement. 3. History of gastrointestinal bleed. The patient taken off Xarelto approximately a year ago. Saw a automatic operator back then. 4. Morbid obesity. 5. Hypertension. 6. Chronic venous stasis cellulitis/edema. PLAN: 1. Continue current IV heparin. 2. Venous Dopplers of lower extremities. 3. No need for TPA. The patient is hemodynamically stable. 4. Echocardiogram ordered. 5. At this point, recommend discharge home with Pradaxa. I do appreciate the privilege in sharing in the patient's care. RUSSEL MONSIVAIS MD DR: TREVOR/ainsley JOB#: [id number] / [id number]
[2016-08-11 07:00] VITALS: BP 135/85
[2016-08-11 08:01] LABS: CHOLESTEROL/HDL RATIO 2.9
[2016-08-11] MEDS: ASPIRIN ENTERIC COATED 81 MG TABLET.DR. PO SCH (09:25)
[2016-08-11] MEDS: SPIRONOLACTONE 25 MG TABLET PO SCH ×2 (09:25→21:52)
[2016-08-11] MEDS: PANTOPRAZOLE 40 MG TABLET. PO SCH (09:25)
[2016-08-11] MEDS: METOPROLOL TART IMMED RELEASE 50 MG TABLET PO SCH ×2 (09:26→21:53)
[2016-08-11] MEDS: HEPARIN 25,000UTS/500ML PREMIX 500 ML IV PRN ×2 (09:33→21:59)
--- NOTE | 2016-08-11 09:58 | PDOC ---
SUBJECTIVE Subjective feels ok , breathing better OBJECTIVE Objective low grade fever , Bp stable Vital Signs Vital Signs Date Time Temp Pulse Resp B/P Pulse Ox O2 Delivery O2 Flow Rate FiO2 08/11/16 09:26 93 08/11/16 07:00 97.7 93 22 135/85 96 Room Air 97.7 08/10/16 23:00 99.0 96 24 115/65 96 Room Air 99.0 08/10/16 21:12 99 136/93 08/10/16 20:00 Room Air 08/10/16 18:19 98.5 99 20 136/93 96 Room Air 98.5 08/10/16 14:38 98.0 89 20 126/92 97 Room Air 98.0 08/10/16 12:12 97 129/85 08/10/16 11:39 98.4 97 20 129/85 95 Room Air 98.4 I & O Intake and Output 08/11/16 07:00 Intake Total 1150 ml Balance 1150 ml Intake Oral 1150 ml # Voids 5 PHYSICAL EXAM Physical Exam lungs clear Heart RRR abd soft none tender ext chronic edema ASSESSMENT/PLAN Assessment/Plan 1. Bilateral pulmonary emboli. continue heparin plan for pradaxa out pt 2. chronic DVT 3. Obesity and possible sleep apnea. 4. Hypertension. 5. Elevated troponin, 6- plmonary HTN and right side heart failure agree with MPI tomorrow Problems: COMMENT Lab Laboratory Tests Test 08/11/16 07:35 Heparin Anti-Xa Act, Unfractionated 0.30IU/mL (0.30-0.70) Triglycerides Level 70mg/dL (0-150) Cholesterol Level 112mg/dL (0-200) LDL Cholesterol, Calculated 59mg/dL (0-100) VLDL Cholesterol, Calculated 14mg/dL (0-40) HDL Cholesterol 39mg/dL (40-60) Cholesterol/HDL Ratio 2.9 NOEMI BEAR MD Aug 11, 2016 09:58
[2016-08-11 11:00] VITALS: BP 136/74
--- NOTE | 2016-08-11 11:07 | PDOC ---
PULMONARY PROGRESS NOTES Subjective pt feels better less soa Vitals Vital Signs Date Time Temp Pulse Resp B/P Pulse Ox O2 Delivery O2 Flow Rate FiO2 08/11/16 09:26 93 08/11/16 07:00 97.7 22 135/85 96 Room Air 97.7 ROS: No Nausea, No Chest Pain, No Abdominal Pain, No Increase Cough General: Alert Lungs: Clear Cardiovascular: S1, S2 Abdomen: Soft Neuro Exam: Alert Extremities: No Edema Skin: Warm Labs Laboratory Tests Test 08/09/16 15:10 08/09/16 20:48 08/10/16 00:55 08/10/16 03:04 White Blood Count 13.0x10^3/uL (4.0-11.0) 10.9x10^3/uL (4.0-11.0) Red Blood Count 5.35x10^6/uL (4.30-5.70) 4.91x10^6/uL (4.30-5.70) Hemoglobin 15.6g/dL (13.0-17.5) 14.5g/dL (13.0-17.5) Hematocrit 48.3% (39.0-53.0) 43.9% (39.0-53.0) Mean Corpuscular Volume 90fL (79-100) 89fL (79-100) Mean Corpuscular Hemoglobin 29pg (25-35) 29pg (25-35) Mean Corpuscular Hemoglobin Concent 32g/dL (31-37) 33g/dL (31-37) Red Cell Distribution Width 13.7% (11.5-14.5) 13.4% (11.5-14.5) Platelet Count 140x10^3/uL (140-400) 139x10^3/uL (140-400) Neutrophils (%) (Auto) 76% (31-73) 69% (31-73) Lymphocytes (%) (Auto) 11% (24-48) 17% (24-48) Monocytes (%) (Auto) 11% (0-9) 13% (0-9) Eosinophils (%) (Auto) 1% (0-3) 1% (0-3) Basophils (%) (Auto) 1% (0-3) 0% (0-3) Neutrophils # (Auto) 9.9x10^3uL (1.8-7.7) 7.5x10^3uL (1.8-7.7) Lymphocytes # (Auto) 1.5x10^3/uL (1.0-4.8) 1.8x10^3/uL (1.0-4.8) Monocytes # (Auto) 1.4x10^3/uL (0.0-1.1) 1.4x10^3/uL (0.0-1.1) Eosinophils # (Auto) 0.1x10^3/uL (0.0-0.7) 0.1x10^3/uL (0.0-0.7) Basophils # (Auto) 0.1x10^3/uL (0.0-0.2) 0.0x10^3/uL (0.0-0.2) Prothrombin Time 13.8SEC (11.7-14.0) Prothromb Time International Ratio 1.1 (0.8-1.1) Activated Partial Thromboplast Time 35SEC (24-38) Sodium Level 138mmol/L (136-145) 139mmol/L (136-145) Potassium Level 4.6mmol/L (3.5-5.1) 4.5mmol/L (3.5-5.1) Chloride Level 102mmol/L (98-107) 103mmol/L (98-107) Carbon Dioxide Level 29mmol/L (21-32) 25mmol/L (21-32) Anion Gap 7 (6-14) 11 (6-14) Blood Urea Nitrogen 19mg/dL (8-26) 22mg/dL (8-26) Creatinine 1.2mg/dL (0.7-1.3) 1.2mg/dL (0.7-1.3) Estimated GFR (Cockcroft-Gault) 61.0 61.0 Glucose Level 106mg/dL (70-99) 108mg/dL (70-99) Calcium Level 9.5mg/dL (8.5-10.1) 8.8mg/dL (8.5-10.1) Troponin I Quantitative 0.800ng/mL (0.000-0.055) 0.676ng/mL (0.000-0.055) 0.499ng/mL (0.000-0.055) CZ-Ghe-N-Type Natriuretic Peptide 2639pg/mL (0-124) Lipase 87U/L (73-393) Heparin Anti-Xa Act, Unfractionated 0.52IU/mL (0.30-0.70) Test 08/10/16 06:35 08/11/16 07:35 Heparin Anti-Xa Act, Unfractionated 0.48IU/mL (0.30-0.70) 0.30IU/mL (0.30-0.70) Triglycerides Level 70mg/dL (0-150) Cholesterol Level 112mg/dL (0-200) LDL Cholesterol, Calculated 59mg/dL (0-100) VLDL Cholesterol, Calculated 14mg/dL (0-40) HDL Cholesterol 39mg/dL (40-60) Cholesterol/HDL Ratio 2.9 Laboratory Tests Test 08/11/16 07:35 Heparin Anti-Xa Act, Unfractionated 0.30IU/mL (0.30-0.70) Triglycerides Level 70mg/dL (0-150) Cholesterol Level 112mg/dL (0-200) LDL Cholesterol, Calculated 59mg/dL (0-100) VLDL Cholesterol, Calculated 14mg/dL (0-40) HDL Cholesterol 39mg/dL (40-60) Cholesterol/HDL Ratio 2.9 Medications Active Scripts Medications Dose Route/Sig Days Date Category Spironolactone 50 Mg Tablet 1 Tab PO BID 08/09/16 Reported Impression . s1. Acute bilateral pulmonary embolism. 2. History of deep venous thrombosis, status post IVC filter placement. 3. History of gastrointestinal bleed. The patient taken off Xarelto approximately a year ago. 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 4. Morbid obesity. 5. Hypertension. 6. Chronic venous stasis cellulitis/edema. Lower Ext Venous doppler Both lower extremities demonstrate presence of occlusive deep venous thrombosis. Thrombosis may be chronic, although it be difficult to exclude acute component Plan . PLAN: 1. Continue current IV heparin. 2. venous Doppler with old clot 3. No need for TPA. The patient is hemodynamically stable. 4. Echocardiogram ordered. 5. recommend discharge home with Pradaxa, after cardiac work up follow in office with a repeat CT of chest in 12 months RUSSEL MONSIVAIS MD Aug 11, 2016 11:07
--- NOTE | 2016-08-11 11:12 | PDOC ---
NINOLONI Adolfo TIN FLOPPER 08/11/16 1112: CARDIO Progress Notes Date and Time Date of Service 08/11/2016 Time of Evaluation 1112 Subjective Subjective: No Chest Pain, No shortness of breath, No Palpitations, No Dizziness Vitals Vitals Vital Signs Date Time Temp Pulse Resp B/P Pulse Ox O2 Delivery O2 Flow Rate FiO2 08/11/16 09:26 93 08/11/16 07:00 97.7 22 135/85 96 Room Air 97.7 Weight Weight [ ] Input and Output Intake and Output Intake and Output 08/11/16 07:00 Intake Total 1150 ml Balance 1150 ml Intake Oral 1150 ml # Voids 5 Laboratory Labs Laboratory Tests Test 08/11/16 07:35 Heparin Anti-Xa Act, Unfractionated 0.30IU/mL (0.30-0.70) Triglycerides Level 70mg/dL (0-150) Cholesterol Level 112mg/dL (0-200) LDL Cholesterol, Calculated 59mg/dL (0-100) VLDL Cholesterol, Calculated 14mg/dL (0-40) HDL Cholesterol 39mg/dL (40-60) Cholesterol/HDL Ratio 2.9 Physical Exam HEENT: Neck Supple W Full Motion Chest: Symmetric LUNGS: Clear to Auscultation Heart: S1S2, RRR Abdomen: Soft N/T, Other (truncal obesity) Extremities: Other (2-3+ bilateral LE edema) Neurology: alert, oriented, follow commands Assessment Assessment 1. abnormal troponin in the setting of bilateral pulmonary emboli peaked at 0.8 no acute changes in EKG echo with preserved LV function; RV systolic function mildly depressed; RA and RV moderately dilated; mild TR MPI tomorrow - will need 2 day study due to body habitus 2. bilateral pulmonary embolus OAC per pulm - will likely need lifelong OAC LE studies with bilateral DVT - ? old hx of IVC filter 3. right sided failure ? related to bilateral PE preserved LV function continue medications 4. Ascending aortic aneurysm dilated to 4.7 cm on echo will need further evaluation in the outpatient setting 5. pulmonary HTN moderate to severe PA = 60 mm Hg NABIL WILLIAM MD 08/11/16 9696: CARDIO Progress Notes Plan Plan Pt. seen and examined. Agree with above [employer]IDENT [employer] note. No acute events overnight. Feels better today. On hep gtt No sig changes on exam. Chronic venous stasis changes. No interventional options for clot burden. Await MPI tomorrow. If MPI negative, start Pradaxa and can DC. If positive, will discuss need/timing of cath. Will follow along. LONI ONEILL APRN Aug 11, 2016 11:12 NABIL WILLIAM MD Aug 11, 2016 23:26
[2016-08-11 15:00] VITALS: BP 127/74
[2016-08-11] MEDS: ANTI-COAG MONITOR BY PHARMACY. MC PRN (15:40)
[2016-08-11 19:00] VITALS: BP 136/77
[2016-08-11 23:18] VITALS: BP 127/78
[2016-08-12 03:00] VITALS: BP 108/62
[2016-08-12 05:14] LABS: CALCIUM 9.2 mg/dL (8.5-10.1); CREATININE 1.3 mg/dL (0.7-1.3); GFR 55.6; POTASSIUM 4.5 mmol/L (3.5-5.1)
[2016-08-12 05:18] LABS: INR 1.1 (0.8-1.1); PROTHROMBIN TIME PATIENT 13.5 SEC (11.7-14.0)
[2016-08-12] MEDS: HEPARIN for IV BOLUS 10,000 UNIT/10 ML VIAL. IV PRN ×2 (06:15→13:14)
[2016-08-12] MEDS ORDERED: REGADENOSON 0.4 MG/5 ML DISP.SYRIN. IV ONE (07:45)
[2016-08-12 07:59] VITALS: BP 110/58
--- NOTE | 2016-08-12 09:56 | PDOC ---
SUBJECTIVE Subjective feels ok , did good with PT, stress test in progress c/o cough OBJECTIVE Vital Signs Vital Signs Date Time Temp Pulse Resp B/P Pulse Ox O2 Delivery O2 Flow Rate FiO2 08/12/16 07:59 98.3 89 20 110/58 95 Room Air 98.3 08/12/16 03:00 99.5 90 18 108/62 94 Room Air 99.5 08/11/16 23:18 98.2 85 18 127/78 97 Room Air 98.2 08/11/16 21:53 86 136/77 08/11/16 20:00 Room Air 08/11/16 19:00 98.3 91 18 136/77 95 Room Air 98.3 08/11/16 15:00 98.6 85 20 127/74 96 Room Air 98.6 08/11/16 11:00 98.6 90 20 136/74 95 Room Air 98.6 I & O Intake and Output 08/12/16 07:00 Intake Total 1320 ml Balance 1320 ml Intake Oral 820 ml IV Total 500 ml # Voids 4 PHYSICAL EXAM Physical Exam lungs clear heart RRR abd soft ext chronic edema ASSESSMENT/PLAN Assessment/Plan awaiting stress test, home with pradaxa if stress test ok Problems: COMMENT Lab Laboratory Tests Test 08/12/16 04:20 Prothrombin Time 13.5SEC (11.7-14.0) Prothromb Time International Ratio 1.1 (0.8-1.1) Heparin Anti-Xa Act, Unfractionated 0.27IU/mL (0.30-0.70) Sodium Level 139mmol/L (136-145) Potassium Level 4.5mmol/L (3.5-5.1) Chloride Level 105mmol/L (98-107) Carbon Dioxide Level 22mmol/L (21-32) Anion Gap 12 (6-14) Blood Urea Nitrogen 28mg/dL (8-26) Creatinine 1.3mg/dL (0.7-1.3) Estimated GFR (Cockcroft-Gault) 55.6 Glucose Level 120mg/dL (70-99) Calcium Level 9.2mg/dL (8.5-10.1) NOEMI BEAR MD Aug 12, 2016 09:56
[2016-08-12] MEDS: ASPIRIN ENTERIC COATED 81 MG TABLET.DR. PO SCH (10:19)
[2016-08-12] MEDS: PANTOPRAZOLE 40 MG TABLET. PO SCH (10:19)
[2016-08-12] MEDS: SPIRONOLACTONE 25 MG TABLET PO SCH ×2 (10:20→21:28)
[2016-08-12] MEDS: METOPROLOL TART IMMED RELEASE 50 MG TABLET PO SCH ×2 (10:23→21:28)
--- NOTE | 2016-08-12 10:50 | PDOC ---
CARDIO Progress Notes Date and Time Date of Service 08/12/2016 Time of Evaluation 1050 Subjective Subjective: No Chest Pain, No shortness of breath, No Palpitations, No Dizziness Vitals Vitals Vital Signs Date Time Temp Pulse Resp B/P Pulse Ox O2 Delivery O2 Flow Rate FiO2 08/12/16 10:23 99 08/12/16 07:59 98.3 20 110/58 95 Room Air 98.3 Weight Weight [ ] Input and Output Intake and Output Intake and Output 08/12/16 07:00 Intake Total 1320 ml Balance 1320 ml Intake Oral 820 ml IV Total 500 ml # Voids 4 Laboratory Labs Laboratory Tests Test 08/12/16 04:20 Prothrombin Time 13.5SEC (11.7-14.0) Prothromb Time International Ratio 1.1 (0.8-1.1) Heparin Anti-Xa Act, Unfractionated 0.27IU/mL (0.30-0.70) Sodium Level 139mmol/L (136-145) Potassium Level 4.5mmol/L (3.5-5.1) Chloride Level 105mmol/L (98-107) Carbon Dioxide Level 22mmol/L (21-32) Anion Gap 12 (6-14) Blood Urea Nitrogen 28mg/dL (8-26) Creatinine 1.3mg/dL (0.7-1.3) Estimated GFR (Cockcroft-Gault) 55.6 Glucose Level 120mg/dL (70-99) Calcium Level 9.2mg/dL (8.5-10.1) Physical Exam HEENT: Neck Supple W Full Motion Chest: Symmetric LUNGS: Clear to Auscultation Heart: S1S2, RRR, other (tele: SR) Abdomen: Soft N/T, Other (truncal obesity) Extremities: Other (2+ bilateral LE edema) Neurology: alert, oriented, follow commands Assessment Assessment 1. abnormal troponin in the setting of bilateral pulmonary emboli peaked at 0.8 no acute changes in EKG echo with preserved LV function; RV systolic function mildly depressed; RA and RV moderately dilated; mild TR 2 day MPI in progres - if stress portion negative today - may be able to discharge when agreeable with other services 2. bilateral pulmonary embolus OAC per pulm - will likely need lifelong OAC LE studies with bilateral DVT - ? old hx of IVC filter 3. right sided failure ? related to bilateral PE preserved LV function continue medications 4. Ascending aortic aneurysm dilated to 4.7 cm on echo will need further evaluation in the outpatient setting 5. pulmonary HTN moderate to severe PA = 60 mm Hg LONI ONEILL BOX [employer]ER Aug 12, 2016 10:50
[2016-08-12] MEDS ORDERED: GUAIFENESIN DM 200MG/20MG 10 ML SYRUP. PO PRN (11:00)
[2016-08-12 11:04] VITALS: BP 143/84
[2016-08-12] MEDS: HEPARIN 25,000UTS/500ML PREMIX 500 ML IV PRN (13:00)
[2016-08-12 14:28] VITALS: BP 117/75
--- NOTE | 2016-08-12 18:14 | RAD ---
APPROVED REPORT Test Type: Pharmacological Stress Nurse/Tech: Demetrius Alfred RN Test Indications: dyspnea on exertion Cardiac History: see ehr Medications: see ehr Medical History: see ehr Resting ECG: ST Resting Heart Rate: 107 bpm Resting Blood Pressure: 129/77mmHg Pretest Chest Pain: None Nurse/Tech Notes Lungs CTA, S1, S2 Consent: The procedure was explained to the patient in lay terms. Informed consent was witnessed. Vinay eout was entered into [employer]. History and Stress Test performed by Milo CarranzaNMaddie Pharm. Details Pharmacologic stress testing was performed using 0.4mg per 5ml of regadenoson given intravenously ove r 7-10 seconds. Stress Symptoms No chest pain or symptoms. POST EXERCISE Reason for Termination: Infusion complete Max HR: 111 bpm Max Blood Pressure: 129/77mmHg Blood Pressure response to exercise: Normal blood pressure response during stress. Chest Pain: No. Arrhythmia: No. ST Change: No. INTERPRETATION Stress EKG Conclusion: No acute changes were noted. Imaging Protocol IMAGE PROTOCOL: Stress Tc-99m/rest Tc-99m 2 days Rest: Stress: Viability: Radiopharm.Tc99m Sestamibi [id number] Duration 15min. Img Date 08/12/2016 Inj-Img [id number]. Stress Admin Site: IV - Right AntecubitalAdministrator: Hasmukh Holloway, RT (R)(N) STRESS DATA End Diast. Vol.98.0mlAv. Heart Rate96.0bpm End Syst. Vol.32.0mlCO Index BSA6.4L/min Myocardial Wdix792.0gEject. Dqdwzazd72.0% Stress Rates Pk. Fill Rate4.06EDV/secLVtime Pk. Fill 188.01msec Pk. Empty Rate5.06ESV/secLVtime Pk. Henhq458.02msec 06/01 Pk. Fill0.76EDV/sec Stress Scores Regional WT2.00Summed WT18.00 Regional WM0.00Summed WM0.00 LV Perfusion Normal perfusion at stress. Wall Motion Normal wall motion. LV Perf. Quant 17 Seg. SSS0.00 Stress Defect Extent (% LAD)0.00Rest Defect Extent (% LAD)Rev. Defect Extent (% LAD)0.00 Stress Defect Extent (% LCX) 0.00Rest Defect Extent (% LCX)Rev. Defect Extent (% LCX)0.00 Stress Defect Extent (% RCA)0.00Rest Defect Extent (% RCA)Rev. Defect Extent (% RCA)0.00 Stress Defect Extent (% LAZARUS)0.00Rest Defect Extent (% LAZARUS)Rev. Defect Extent (% LAZARUS)0.00 Other Information Quality:Average Risk Assessment: Low Risk Conclusion 1. No evidence of stress induced EKG changes. 2. Normal myocardial perfusion study at stress with preserved EF of > 65% 3. Low risk study.
[2016-08-12 19:00] VITALS: BP 126/76
[2016-08-12] MEDS: BENZONATATE 100 MG CAPSULE. PO SCH (21:27)
[2016-08-12 23:00] VITALS: BP 130/67
[2016-08-13] MEDS: HEPARIN 25,000UTS/500ML PREMIX 500 ML IV PRN (00:27)
[2016-08-13] MEDS ORDERED: BYSTOLIC5 MG PO (06:52)
[2016-08-13 07:50] VITALS: BP 137/82
[2016-08-13] MEDS ORDERED: DABI150C PO (08:36)
[2016-08-13] MEDS ORDERED: BENZ100C2 PO (08:36)
--- NOTE | 2016-08-13 08:38 | PDOC3 ---
Discharge Summary* Date of Admission: Aug 08, 2016 Date of Discharge: Aug 13, 2016 Admitting Diagnosis Problems Medical Problems: (1) Pulmonary embolism Status: Acute Final Diagnosis 1. Bilateral pulmonary emboli. Problems 2. abnormal troponin in the setting of bilateral pulmonary emboli echo with preserved LV function; RV systolic function mildly depressed; RA and RV moderately dilated; mild TR1. stress test no ischemia 3. Previous history of deep venous thromboses with inferior vena cava filter in place that was supposed to be removed. 4. Obesity and possible sleep apnea. 5. Hypertension. 6. right sided failure ? related to bilateral PE preserved LV function 7 Ascending aortic aneurysm dilated to 4.7 cm on echo will need further evaluation in the outpatient setting 8. pulmonary HTN moderate to severe PA = 60 mm Hg (1) Pulmonary embolism Status: Acute CONSULTS pulmonary Cardiology Procedures CT chest Echo MPI CXR venous doppler US Brief Hospital Course Mr. Loo is a 66 old [sex] who presented with [ ] Disposition/Orders: D/C to Home CONDITION AT DISCHARGE: Improved Diet: Cardiac Scheduled Aspirin (Aspirin Ec) 1 TAB PO DAILY (Reported) Benzonatate (Benzonatate) 100 MG PO [id number] Dabigatran Etexilate Mesylate (Pradaxa) 1 CAP PO BID Nebivolol Hcl (Bystolic) 5 MG PO DAILY (Reported) Spironolactone (Spironolactone) 1 TAB PO BID (Reported) FOLLOW UP APPOINTMENT: Dr. Ramirez 1 week Time Spent Total time spent with patient [] minutes for coordination of care, counseling, and education. NOEMI BEAR MD Aug 13, 2016 08:38
--- NOTE | 2016-08-13 08:38 | PDOC ---
SUBJECTIVE Subjective feels better, breathin ok, stress test neg OBJECTIVE Vital Signs Vital Signs Date Time Temp Pulse Resp B/P Pulse Ox O2 Delivery O2 Flow Rate FiO2 08/13/16 07:50 98.5 76 20 137/82 96 Room Air 98.5 08/12/16 23:00 99.2 88 18 130/67 94 Room Air 99.2 08/12/16 21:28 88 126/76 08/12/16 19:30 Room Air 08/12/16 19:00 99.5 88 18 126/76 95 Room Air 99.5 08/12/16 14:28 98.3 86 18 117/75 95 Room Air 98.3 08/12/16 11:04 98.2 96 21 143/84 94 Room Air 98.2 08/12/16 10:23 99 I & O Intake and Output 08/13/16 07:00 Intake Total 2059 ml Balance 2059 ml Intake Oral 1550 ml IV Total 509 ml # Voids 5 PHYSICAL EXAM Physical Exam lungs clear heart RRR abd soft ext chronic edema ASSESSMENT/PLAN Assessment/Plan home on Pradaxa today, f/u out pt Problems: COMMENT Lab Laboratory Tests Test 08/12/16 12:00 08/12/16 19:10 08/13/16 00:40 Heparin Anti-Xa Act, Unfractionated 0.20IU/mL (0.30-0.70) 0.47IU/mL (0.30-0.70) 0.44IU/mL (0.30-0.70) NOEMI BEAR MD Aug 13, 2016 08:38
[2016-08-13] MEDS ORDERED: ASPI81TA9 PO (09:14)
[2016-08-13] MEDS: PANTOPRAZOLE 40 MG TABLET. PO SCH (09:29)
[2016-08-13] MEDS: BENZONATATE 100 MG CAPSULE. PO SCH (09:29)
[2016-08-13] MEDS: SPIRONOLACTONE 25 MG TABLET PO SCH (09:29)
[2016-08-13] MEDS: ASPIRIN ENTERIC COATED 81 MG TABLET.DR. PO SCH (09:29)
[2016-08-13 09:30] VITALS: BP 137/82
[2016-08-13] MEDS: METOPROLOL TART IMMED RELEASE 50 MG TABLET PO SCH (09:30)
== END 2016-08-13 09:30 | disposition home or self-care (01) | DRG 176 ==
LOC: ER 13:39 → CVICU 17:37
PROVIDERS: ADMIT Internal Medicine; ATTEND Internal Medicine
DX: I26.99 Other pulmonary embolism without acute cor pulmonale (principal); Z68.41 Body mass index [BMI] 40.0-44.9, adult; L03.90 Cellulitis, unspecified; I50.32 Chronic diastolic (congestive) heart failure; I71.2 Thoracic aortic aneurysm, without rupture; E66.01 Morbid (severe) obesity due to excess calories; G47.33 Obstructive sleep apnea (adult) (pediatric); I10 Essential (primary) hypertension; I25.10 Atherosclerotic heart disease of native coronary artery without angina pectoris; I27.2 Other secondary pulmonary hypertension; I87.8 Other specified disorders of veins; R26.2 Difficulty in walking, not elsewhere classified; Z82.49 Family history of ischemic heart disease and other diseases of the circulatory system; Z86.010 Personal history of colon polyps; Z86.711 Personal history of pulmonary embolism; Z86.718 Personal history of other venous thrombosis and embolism; Z87.891 Personal history of nicotine dependence
CPT/HCPCS: 36415; 71020; 71275; 78452; 80048; 80061; 83690; 83880; 84484; 85027; 85520; 85610; 85730; 93005; 93017; 93306; 93970; 96374; 96375; A9500; J2785; 99285-25